=== PATIENT | female | born 1960 | race Caucasian/White ===

== ENCOUNTER → 2020-02-12 | Outpatient (CLI) | payer OTHER | LOC: M.LAB 15:26 | DX: Z20.828 Contact with and (suspected) exposure to other viral communicable diseases (principal) ==

== ENCOUNTER → 2020-11-13 | Outpatient (CLI) | payer OTHER | LOC: M.RAD 11:24 | PROVIDERS: ATTEND Internal Medicine Geriatric Medicine | DX: M25.512 Pain in left shoulder (principal); G89.29 Other chronic pain ==